=== PATIENT | male | born 1980 | race Caucasian/White ===

== ENCOUNTER 2020-03-28 11:10 | Outpatient (CLI) | payer OTHER, SELFPAY ==
--- NOTE | ~2020-03-28 | CT_ITS ---
EXAMINATION: CT abdomen pelvis w con DATE: 03/28/2020 11:58 INDICATION: Right lower quadrant abdominal pain TECHNIQUE: Computed tomography (CT) of the abdomen and pelvis was performed with 100 cc Omnipaque 350 intravenous contrast. Automated exposure control and iterative reconstruction technique were employe d. Exam dose: 215.96 mGy-cm total exam DLP. COMPARISON: 05/02/2016 CT abdomen pelvis FINDINGS: The lung bases are clear. Normal heart size. No pericardial or pleural effusion. There are bilateral foramen of [place]dale[place] hernias containing portions of the kidneys, larger on the le ft. The liver, gallbladder, bile ducts, pancreas, pancreatic duct, spleen, adrenal glands and kidneys are unremarkable, except for 2 small upper pole left renal calculi, the larger approximately 3 mm.. Normal caliber of the abdominal aorta. No intraperitoneal or retroperitoneal or pelvic mass lesion or adenopathy or ascites. The urinary bladder, prostate gland and seminal vesicles are unremarkable oth er than some prostate calcifications. Normal appendix. No bowel obstruction, bowel wall thickening, pneumatosis or intraperitoneal free air . Included skeletal structures are unremarkable. IMPRESSION: Small nonobstructing upper pole left renal calculi; no urinary tract calculus or hydrour eteronephrosis Normal appendix Bilateral foramen of [place]dalek hernias containing portions of the kidneys Reviewed, dictated and finalized at [facility]. Reviewed, dictated and finalized at [facility]. IMPRESSION: Small nonobstructing upper pole left renal calculi; no urinary tra ct calculus or hydroureteronephrosis Normal appendix Bilateral foramen of [place]dalek hernias containing portions of the kidneys
== END 2020-03-28 11:11 | disposition home or self-care (01) ==
LOC: ANHIMG 11:16
PROVIDERS: PCP Family Medicine; Visit Provider Family Medicine
DX: R10.31 Right lower quadrant pain (principal); N20.0 Calculus of kidney
CPT/HCPCS: 74177; Q9967

== ENCOUNTER 2020-09-03 10:06 | Emergency (ER) | payer OTHER, SELFPAY ==
--- NOTE | ~2020-09-03 | XR_ITS ---
XR abdomen/kub 1V 09/03/2020 11:29 INDICATION: Flank pain TECHNIQUE: KUB COMPARISON: None FINDINGS: Bowel gas pattern is normal. There is no evidence of free air, mass, organomegaly, ascites or obstruction. No abnormal calculi are seen. The bones appear intact. IMPRESSION: 1: No acute abdominal abnormality identified. Reviewed, dictated and finalized at location [facility]. ICULTURE TEACHER
--- NOTE | ~2020-09-03 | CT_ITS ---
EXAMINATION: CT abdomen pelvis wo con DATE: 09/03/2020 11:26 INDICATION: Flank pain TECHNIQUE: Computed tomography (CT) of the abdomen and pelvis was performed without intravenous contr ast. The dose-length product was 169.44 mGy-cm. Automated exposure control and iterative reconstructi on technique were employed. COMPARISON: CT dated 03/28/2020 and KUB dated 09/03/2020 FINDINGS: Lung bases unremarkable. Heart size normal. No significant pleural or pericardial effusion. There is a 3 mm left UVJ stone with mild hydronephrosis. There is a 4 mm nonobstructing left renal st one. No significant vascular abnormality. Small hiatal hernia. No significant vascular abnormality. No lym phadenopathy. No abnormal pelvic masses or fluid collections. Nonobstructive bowel gas pattern. Meera l appendix. There is osteoarthritis of the hips. Dextrocurvature of the lumbar spine. IMPRESSION: 1. Left UVJ stone measuring 3 mm with mild hydronephrosis. 2: Nonobstructing left renal stone. 3: Small hiatal hernia. Reviewed, dictated and finalized at location [facility]. OLATIER
[2020-09-03 10:13] VITALS: BP 142/75; PULSE 86; RESP 18; TEMP 36.1; O2SAT 100
[2020-09-03 10:34] LABS: Basophils Absolute Auto 0.1 K/mm3 (0.0-0.1); Basophils Percent Auto 0.8 % (0.2-1.2); Eosinophils Absolute Auto 0.2 K/mm3 (0-0.3); Eosinophils Percent Auto 2.4 % (0-4.4); Hematocrit 43.7 % (42.0-52.0); Hemoglobin 14.9 g/dL (14.0-18.0); Immature Granulocyte Absolute 0.02 K/mm3 (0.00-0.031); Immature Granulocyte Percent A 0.3 % (0-0.5); Lymphocytes Absolute Auto 2.21 K/mm3 (0.9-3.2); Lymphocytes Percent Auto 27.7 % (18.3-44.2); Mean Corpuscular HGB Conc 34.1 g/dl (32-36); Mean Corpuscular Hemoglobin 30.9 pg (26-34); Mean Corpuscular Volume 90.7 fl (80-100); Mean Platelet Volume 9.3 fl (7.4-10.4); Monocytes Absolute Auto 0.6 K/mm3 (0.1-0.6); Neutrophils Percent Auto 61.8 % (45.5-73.1); Platelet Count Result 307 k/mm3 (150-375); Red Blood Count 4.82 M/mm3 (4.6-6.20); Red Cell Distribution Width 11.5 % (11.5-14.5)
[2020-09-03 10:47] LABS: Anion Gap 9 mmol/L (8-16); Blood Urea Nitrogen 17 mg/dL (9-20); Calcium 9.4 mg/dL (8.4-10.2); Carbon Dioxide 26 mmol/L (22-30); Chloride 105 mmol/L (98-107); Estimated CRCL calculation 89 ml/min; Estimated Glomerular Filt Rate > 60; Glucose 111 mg/dL (75-110); Sodium 140 mmol/L (137-145)
[2020-09-03] MEDS: SODIUM CHLORIDE 0.9% IV 1,000 ML 999 ML IV CONT (10:51)
[2020-09-03] MEDS: FAMOTIDINE 20 MG/2 ML VIAL IV PUSH (10:51)
[2020-09-03] MEDS: ONDANSETRON INJ 4 MG/2 ML VIAL IV PUSH (10:51)
[2020-09-03] MEDS: MORPHINE SULFATE (*CRX) 4 MG/ML INJ IV PUSH (11:05)
[2020-09-03 11:44] LABS: Add Urine Microscopic? YES; Appearance Urine Clear (Clear); Bilirubin Urine Negative (Negative); Blood Urine Negative (Negative); Color Urine Yellow (Yellow); Glucose Urine UA Negative (Negative); Ketones Urine Negative (Negative); Leukocyte Esterase Ur Negative LEU/UL (Negative); Nitrate Urine Negative (Negative); Protein Urine 1+ mg/dL (Negative); RBC Urine 0-2 /hpf (0-2); Specific Grav Ur 1.018 (1.001-1.035); Urobilinogen Urine Negative mg/dL (<2.0)
[2020-09-03] MEDS: KETOROLAC 30 MG/ML VIAL (*BKC) IV PUSH (12:18)
--- NOTE | 2020-09-03 12:54 | ED.BACK ---
HPI - Back Pain/Injury General Chief Complaint: Back Pain/Injury Stated Complaint: back pain Time Seen by Provider: 09/03/20 10:15 Source: patient Mode of arrival: ambulatory Limitations: no limitations History of Present Illness HPI Narrative: Patient is a 39-year-old male who presents to emergency department for evaluation of left flank pain that began acutely today sharp stabbing pain from the left CVA region into the abdomen patient notes history of kidney stone patient does not take anything for his symptoms notes nausea chills and sweats associated with the pain patient had felt fine yesterday Related Data Allergies Allergy/AdvReac Type Severity Reaction Status Date / Time aloe Allergy Unknown Hives Verified 09/03/20 10:17 Latex, Natural Rubber Allergy Hives Verified 09/03/20 10:17 Review of Systems Review of Systems: All systems reviewed & are unremarkable except as noted in HPI and below PMFSH Past Medical History Medical History (Updated 09/03/20 @ 12:59 by Kevan Cunningham PA-C) Urolithiasis Social History Social History Smoking status: Light tobacco smoker Second hand tobacco smoke exposure: No Alcohol intake: current Exam Narrative: Exam Narrative: GENERAL: Well-appearing, well-nourished, and uncomfortable in no acute distress. HEAD: Normocephalic, atraumatic. EYES: PERRLA and EOMI. ENT: Nares clear, no rhinorrhea or epistaxis. Mucous membranes moist. CHEST: Clear to auscultation. No respiratory distress. No wheezes rales or rhonchi HEART: Regular rate and rhythm. No murmur heard. Normal peripheral pulses. ABDOMEN: Soft, nontender, nondistended EXTREMITIES: Normal range of motion. No edema. SKIN: Warm, dry, no rash. NEURO: No focal deficits. Alert and oriented x3. PSYCH: Normal mood and affect. Course Course Emergency Course: Patient found to have urolithiasis will be discharged home no high risk changes in the blood work or imaging otherwise patient had drastic improvement with interventions and medications patient is already seen urology and will follow with them as recommended and was given reasons to return vital signs and ABCs intact and stable Vital Signs Vital signs: Vital Signs Temperature 97.0 F L 09/03/20 10:13 Pulse Rate 86 09/03/20 10:13 Respiratory Rate 18 09/03/20 10:13 Blood Pressure 142/75 H 09/03/20 10:13 Pulse Oximetry 100 09/03/20 10:13 Temperature 97.0 F L 09/03/20 10:13 Pulse Rate 86 09/03/20 10:13 Respiratory Rate 18 09/03/20 10:13 Blood Pressure 142/75 H 09/03/20 10:13 Pulse Oximetry 100 09/03/20 10:13 MDM - Back Pain/Injury MDM Narrative Medical decision making narrative: Patient with urolithiasis as the etiology of his pain will be discharged home after marked improvement with medications. Lab Data Result diagrams: 09/03/20 10:22 09/03/20 10:22 Labs: Lab Results 09/03/20 09/03/20 09/03/20 Range/Units 10:22 10:22 11:36 WBC 8.0 (4.5-10.0) K/mm3 RBC 4.82 (4.6-6.20) M/mm3 Hgb 14.9 (14.0-18.0) g/dL Hct 43.7 (42.0-52.0) % MCV 90.7 (80-100) fl MCH 30.9 (26-34) pg MCHC 34.1 (32-36) g/dl RDW 11.5 (11.5-14.5) % Plt Count 307 (150-375) k/mm3 MPV 9.3 (7.4-10.4) fl Immature Gran % (Auto) 0.3 (0-0.5) % Neut % (Auto) 61.8 (45.5-73.1) % Lymph % (Auto) 27.7 (18.3-44.2) % [place] % (Auto) 7.0 (2.6-8.5) % Eos % (Auto) 2.4 (0-4.4) % Baso % (Auto) 0.8 (0.2-1.2) % Lymph # (Auto) 2.21 (0.9-3.2) K/mm3 [place] # (Auto) 0.6 (0.1-0.6) K/mm3 Eos # (Auto) 0.2 (0-0.3) K/mm3 Baso # (Auto) 0.1 (0.0-0.1) K/mm3 Abs Immat Gran (auto) 0.02 (0.00-0.031) K/mm3 Absolute Neuts (auto) 5.0 (1.3-6.7) K/mm3 Absolute Nucleated RBC 0.0 (0.0-0.012) K/mm3 Nucleated RBC % 0.0 (0.0-0.2) % Sodium 140 (137-145) mmol/L Potassium 4.0 (3.4-5.0) mmol/L Chlorid
[2020-09-03 13:09] VITALS: BP 105/66; PULSE 104; RESP 18; O2SAT 99
== END 2020-09-03 13:11 | disposition home or self-care (01) ==
PROVIDERS: Emergency Medicine Emergency Medical Services; Emergency Provider Emergency Medicine; PCP Family Medicine
DX: N13.2 Hydronephrosis with renal and ureteral calculous obstruction (principal); F17.200 Nicotine dependence, unspecified, uncomplicated; K44.9 Diaphragmatic hernia without obstruction or gangrene
CPT/HCPCS: 36415; 74018; 74176; 80048; 81001; 85025; 87086; 96365; 96366; 96375; 99284; J0131; J1885; J2270; J2405; J7030

== ENCOUNTER 2020-09-07 12:18 | Outpatient (CLI) | payer OTHER, SELFPAY ==
--- NOTE | ~2020-09-07 | XR_ITS ---
EXAMINATION: XR hand LT 2V INDICATION: Pain in unspecified fingers TECHNIQUE: Two views of the left hand are obtained. COMPARISON: None available FINDINGS: There is no fracture, dislocation, or subluxation. The bones, soft tissues, and joint space s are normal. IMPRESSION: 1. No acute osseous abnormality. Reviewed, dictated and finalized at location [facility]. HELPER
== END 2020-09-07 12:19 | disposition home or self-care (01) ==
PROVIDERS: PCP Family Medicine; Visit Provider Physician Assistant
DX: M79.646 Pain in unspecified finger(s) (principal)
CPT/HCPCS: 73120

== ENCOUNTER 2021-03-16 07:40 | Emergency (ER) | payer OTHER, SELFPAY ==
--- NOTE | ~2021-03-16 | US_ITS ---
EXAMINATION: US venous doppler LE RT DATE: 03/16/2021 09:07 INDICATION: Right lower limb pain TECHNIQUE: Grayscale ultrasound images without and with compression and Doppler ultrasound images of the right lower extremity veins were obtained. COMPARISON: None. FINDINGS: The visualized portions of right common femoral vein, profunda (deep) femoral vein, femoral vein, pop liteal vein, peroneal trunk, posterior tibial veins, peroneal veins, gastrocnemius vein and greater s aphenous vein outflow are patent. IMPRESSION: 1. No deep venous thrombosis in the right lower limb. Reviewed, dictated and finalized at location [facility].
--- NOTE | ~2021-03-16 | XR_ITS ---
EXAMINATION: XR knee RT 3V DATE: 03/16/2021 08:30 INDICATION: Right knee pain TECHNIQUE: Three views of the right knee were obtained. COMPARISON: None. FINDINGS: Alignment is normal. No fracture or osteochondral lesion. Joint spaces are normal with no e rosions. No joint effusion/synovitis. Soft tissues are unremarkable. IMPRESSION: 1. No acute osseous abnormality. Reviewed, dictated and finalized at location B.
[2021-03-16 07:41] VITALS: BP 139/89; PULSE 94; RESP 20; TEMP 36.7; O2SAT 100
--- NOTE | 2021-03-16 07:51 | ED.LOWEXIN ---
HPI - Extremity Injury (Lower) General Chief Complaint: Extremity Injury, Lower Stated Complaint: R LEG PAIN Time Seen by Provider: 03/16/21 07:50 History of Present Illness HPI Narrative: right lower leg/knee pain for the past few days. Dull aching pain. Gets better after moving around. No weakness, numbness, swelling, back pain, SOB. He has not ried anything for the pain. Related Data Allergies Allergy/AdvReac Type Severity Reaction Status Date / Time aloe Allergy Unknown Hives Verified 09/03/20 10:17 Latex, Natural Rubber Allergy Hives Verified 09/07/20 11:33 Review of Systems Review of Systems: All systems reviewed & are unremarkable except as noted in HPI and below Constitutional: Constitutional: Denies chills and Denies fever(s) Cardiovascular: Cardiovascular: Denies chest pain Respiratory: Respiratory: Denies dyspnea Gastrointestinal: Gastrointestinal: Reports no additional gastrointestinal complaints Musculoskeletal: Musculoskeletal: Denies back pain Neurologic: Denies numbness and Denies weakness PMFSH Past Medical History Medical History Hernia Urolithiasis Social History Social History Smoking packs per day: 0.5 Smoking cigarettes per day: 10.0 Years smoked: 20 Smoking pack-years: 10.00 Smoking status: Current every day smoker Second hand tobacco smoke exposure: No Alcohol intake: former Substance use: current Substance use type: marijuana Gender identity (if verbalized by the patient): Male Exam Const: General: healthy appearing, no acute distress and alert Orientation/consciousness: patient oriented x3 HENMT: Head: normal to inspection Neck: Neck: normal visual inspection Resp: Effort & Inspection: normal respiratory effort Auscultation: clear to auscultation bilaterally, no rales, no rhonchi and no wheezes Cardio: Jugular venous distension: no JVD Rate: regular rate Rhythm: regular rhythm Heart sounds: no murmurs Skin: General skin exam: normal color Neuro: General: patient oriented x3, moves all extremities and no focal motor deficits Speech: normal speech Gait exam (Neuro): Normal gait present Extrem: General: normal to inspection and no edema Psych: Appearance: well kempt Affect: normal affect Course Vital Signs Vital signs: Vital Signs Temperature 36.7 C 03/16/21 07:41 Pulse Rate 94 03/16/21 07:41 Respiratory Rate 20 03/16/21 07:41 Blood Pressure 139/89 03/16/21 07:41 Pulse Oximetry 100 03/16/21 07:41 Temperature 36.7 C 03/16/21 08:51 Pulse Rate 59 L 03/16/21 10:41 Respiratory Rate 16 03/16/21 10:41 Blood Pressure 114/73 03/16/21 10:41 Pulse Oximetry 97 03/16/21 10:41 MDM - Extremity Injury (Lower) MDM Narrative Medical decision making narrative: I suspect that this is sciatica, although an atypicla presentation. Doppler negative. X-ray normal. Medical Records Attestation: I reviewed the patient's medical records. Imaging Data Radiologist's impression: ITS Impressions Knee X-Ray 03/16/21 08:40 IMPRESSION: 1. No acute osseous abnormality. Venous Doppler Study 03/16/21 09:08 IMPRESSION: 1. No deep venous thrombosis in the right lower limb. Discharge Plan Discharge Clinical Impression: Sciatica Qualifiers: Laterality: right Qualified Code(s): M54.31 - Sciatica, right side Patient Disposition: Home, Self-Care Condition: Stable Instructions: Sciatica (ED) Prescriptions: New methylprednisolone [Medrol (Kd)] 4 mg tablets,dose pack See Rx Instructions .ROUTE .COMPLEX Qty: 21 RF: 0 Follow-up/Referrals: Génesis Beltran MD [Primary Care Provider] -
[2021-03-16] MEDS: KETOROLAC (*BKC) 60 MG/2 ML VIAL IM (08:21)
--- NOTE | 2021-03-16 08:21 | PC.NURSE ---
Pt to U/S and XRAY via w/c.
[2021-03-16 08:51] VITALS: TEMP 36.7
[2021-03-16] MEDS: predniSONE 20 MG TABLET 60 MG PO (10:38)
[2021-03-16 10:41] VITALS: BP 114/73; PULSE 59; RESP 16; O2SAT 97
== END 2021-03-16 10:56 | disposition home or self-care (01) ==
PROVIDERS: Emergency Provider Emergency Medicine; PCP Family Medicine
DX: M54.31 Sciatica, right side (principal); Z87.442 Personal history of urinary calculi; F17.210 Nicotine dependence, cigarettes, uncomplicated
CPT/HCPCS: 73562; 93971; 96372; 99284; J1885; J7512

== ENCOUNTER 2024-05-03 13:59 | Outpatient (CLI) | payer OTHER, SELFPAY ==
--- NOTE | ~2024-05-03 | XR_ITS ---
[id number] Ordering provider: Joy Sprague PA-C History: . R52 - Pain, unspecified . Comparison: None. FINDINGS: VERTEBRAL BODIES: Normal height and alignment. No visible fracture or subluxation. The dens is intact . DISK SPACES: Narrowing of the disc C3-C4, C5-C6 and C6-C7. Uncovertebral joint osteoarthritic changes at the level of C5-C6 and C6-C7. PARASPINOUS SOFT TISSUES: No prevertebral soft tissue swelling. IMPRESSION: No acute osseous abnormality cervical spine. Reviewed, dictated and finalized at location A.
== END 2024-05-03 14:00 | disposition home or self-care (01) ==
PROVIDERS: PCP Family Medicine; Visit Provider Student in an Organized Health Care Education/Training Program
DX: R52 Pain, unspecified (principal)
CPT/HCPCS: 72040

== ENCOUNTER 2024-06-11 07:12 | Outpatient (CLI) | payer OTHER, SELFPAY ==
[2024-06-11 07:22] LABS: Basophils Percent Auto 0.6 % (0.2-1.2); Eosinophils Absolute Auto 0.2 K/mm3 (0-0.3); Eosinophils Percent Auto 2.6 % (0-4.4); Hematocrit 43.7 % (42.0-52.0); Hemoglobin 14.9 g/dL (14.0-18.0); Immature Granulocyte Absolute 0.04 K/mm3 (0.00-0.031); Immature Granulocyte Percent A 0.6 % (0-0.5); Lymphocytes Absolute Auto 1.66 K/mm3 (0.9-3.2); Lymphocytes Percent Auto 25.7 % (18.3-44.2); Mean Corpuscular HGB Conc 34.1 g/dl (32-36); Mean Corpuscular Hemoglobin 31.2 pg (26-34); Mean Corpuscular Volume 91.6 fl (80-100); Mean Platelet Volume 9.1 fl (7.4-10.4); Monocytes Absolute Auto 0.7 K/mm3 (0.1-0.6); Monocytes Percent Auto 10.4 % (2.6-8.5); Neutrophils Absolute Auto 3.9 K/mm3 (1.3-6.7); Neutrophils Percent Auto 60.1 % (45.5-73.1); Platelet Count Result 285 k/mm3 (150-375); Red Blood Count 4.77 M/mm3 (4.6-6.20); Red Cell Distribution Width 11.6 % (11.5-14.5); White Blood Count 6.5 K/mm3 (4.5-10.0)
[2024-06-11 07:40] LABS: Alanine Aminotransferase 82 U/L (6-50); Albumin Level 4.5 g/dL (3.5-5.1); Alkaline Phosphatase 107 U/L (38-126); Anion Gap 5 mmol/L (4-12); Aspartate Amino Transferase 51 U/L (17-59); Bilirubin,Total 0.5 mg/dL (0.2-1.3); Blood Urea Nitrogen 18 mg/dL (9-20); Calcium 9.7 mg/dL (8.4-10.2); Carbon Dioxide 30 mmol/L (22-30); Chloride 104 mmol/L (98-107); Cholesterol 246 mg/dL (0-200); Estimated Glomerular Filt Rate > 60; Glucose 110 mg/dL (65-110); HDL Direct 44 mg/dL; Potassium 4.5 mmol/L (3.4-5.0); Sodium 139 mmol/L (137-145); Triglycerides 226 mg/dL (<150)
[2024-06-11 07:51] LABS: LDL Cholesterol Direct 129 mg/dL
== END 2024-06-11 07:13 | disposition home or self-care (01) ==
PROVIDERS: PCP Family Medicine; Visit Provider Student in an Organized Health Care Education/Training Program
DX: Z00.00 Encounter for general adult medical examination without abnormal findings (principal); R53.83 Other fatigue
CPT/HCPCS: 36415; 80053; 80061; 85025

== ENCOUNTER 2024-11-22 07:49 | Observation (INO) | payer OTHER, SELFPAY ==
[2024-11-22] VITALS (13 sets, daily range): BP systolic 122–148; BP diastolic 81–97; PULSE 78–95; RESP 16–18; TEMP 36.6–36.9; O2SAT 96–100
--- NOTE | ~2024-11-22 | XR_ITS ---
EXAMINATION: XR retrograde pyelo w/stent LT DATE: 11/23/2024 12:05 INDICATION: Left retrograde pyelogram and internal ureteral stent placement TECHNIQUE: 4 fluoroscopic images of the abdomen and pelvis were obtained during procedure performed b stephanie Rios. Radiologist was not present for the imaging or procedure. The amount of fluoroscopy t donny used during this procedure was 0.4 minutes. Total DAP was 0.319 mGym^2. COMPARISON: None. FINDINGS: There is subtle excreted contrast in the left ureter on the traffic rate clerk image. Small density projecting ove r the left side of the bladder could represent the previously noted obstructing stone near the ureter ovesicular junction. Subsequent images demonstrate cannulation and retrograde contrast injection into the left ureter and renal collecting system which appear unremarkable. No other stones identified. T he left kidney although small stone seen at the upper pole the left kidney on prior CT could be obscu red by the injected contrast. A subtle curvilinear density projecting over the contrast opacified lef t renal pelvis on the final image could represent the proximal loop of a reported left internal urete ral stent. IMPRESSION: 1. Fluoroscopy utilized during left retrograde pyelogram and report intraureteral stent placement. Se e procedure note for further detail. Reviewed, dictated and finalized at location A. IMPRESSION: 1. Fluoroscopy utilized during left retrograde pyelogram and report intraureter al stent placement. See procedure note for further detail.
--- NOTE | ~2024-11-22 | CT_ITS ---
EXAMINATION: CT abdomen pelvis w con DATE: 11/22/2024 10:05 INDICATION: Abdominal pain and flank pain TECHNIQUE: Computed tomography (CT) of the abdomen and pelvis was performed with 100 mL Omnipaque-350 intravenous contrast. Automated exposure control and iterative reconstruction technique were employe d. The dose-length product was 434.68 mGy-cm. COMPARISON: 09/03/2020 FINDINGS: Mild dependent atelectasis in the bilateral lower lobes. Heart size is normal. No pericardial or pleu ral effusion. Small sliding-type hiatal hernia. Liver, gallbladder, spleen, pancreas,, bilateral adre nal glands and right kidney are normal. 4-5 mm obstructing stone at the left ureterovesicular junctio n with mild left hydronephrosis and delayed left nephrogram. There is an additional 4 mm stone in upp er pole calyx of the left kidney. Bowels including the appendix are normal. Bladder is normal. No doc e intraperitoneal gas or fluid. No pathologically enlarged abdominal or pelvic lymphadenopathy. Mild lumbar and lower thoracic spondylosis. IMPRESSION: 1. Obstructing 4-5 mm stone at the left ureterovesicular junction with mild left hydronephrosis and d elayed nephrogram. Reviewed, dictated and finalized at location B. IMPRESSION: 1. Obstructing 4-5 mm stone at the left ureterovesicular junction with mild lef t hydronephrosis and delayed nephrogram.
[2024-11-22 08:52] LABS: Basophils Absolute Auto 0.1 K/mm3 (0.0-0.1); Basophils Percent Auto 0.5 % (0.2-1.2); Eosinophils Percent Auto 0.3 % (0-4.4); Hematocrit 41.4 % (42.0-52.0); Hemoglobin 14.2 g/dL (14.0-18.0); Immature Granulocyte Absolute 0.05 K/mm3 (0.00-0.031); Immature Granulocyte Percent A 0.4 % (0-0.5); Lymphocytes Absolute Auto 1.45 K/mm3 (0.9-3.2); Mean Corpuscular HGB Conc 34.3 g/dl (32-36); Mean Corpuscular Hemoglobin 30.2 pg (26-34); Mean Corpuscular Volume 88.1 fl (80-100); Mean Platelet Volume 9.6 fl (7.4-10.4); Monocytes Absolute Auto 1.2 K/mm3 (0.1-0.6); Monocytes Percent Auto 10.2 % (2.6-8.5); Neutrophils Absolute Auto 9.2 K/mm3 (1.3-6.7); Neutrophils Percent Auto 76.6 % (45.5-73.1); Platelet Count Result 274 k/mm3 (150-375); Red Cell Distribution Width 11.9 % (11.5-14.5); White Blood Count 12.1 K/mm3 (4.5-10.0)
[2024-11-22 08:56] LABS: Add Urine Microscopic? YES; Appearance Urine Clear (Clear); Bacteria Urine None Seen /hpf; Bilirubin Urine Negative (Negative); Blood Urine Negative (Negative); Color Urine Yellow (Yellow); Glucose Urine UA Negative (Negative); Ketones Urine Negative (Negative); Leukocyte Esterase Ur Negative LEU/UL (Negative); Nitrate Urine Negative (Negative); Non Pathogenic Casts 0-2; Protein Urine 1+ mg/dL (Negative); RBC Urine 0-2 /hpf (0-2); Specific Grav Ur 1.022 (1.001-1.035); Squamous Epithelial Cell Urine None Seen /hpf (Few); WBC Urine 0-5 /hpf (0-3)
[2024-11-22 09:06] LABS: Alanine Aminotransferase 48 U/L (6-50); Albumin Level 4.5 g/dL (3.5-5.1); Alkaline Phosphatase 124 U/L (38-126); Anion Gap 10 mmol/L (4-12); Aspartate Amino Transferase 28 U/L (17-59); Bilirubin,Total 0.7 mg/dL (0.2-1.3); Blood Urea Nitrogen 18 mg/dL (9-20); Calcium 9.2 mg/dL (8.4-10.2); Carbon Dioxide 26 mmol/L (22-30); Chloride 101 mmol/L (98-107); Estimated CRCL calculation 55 ml/min; Estimated Glomerular Filt Rate 44; Glucose 112 mg/dL (65-110); Lipase 27 U/L (23-300); Potassium 4.1 mmol/L (3.4-5.0); Sodium 137 mmol/L (137-145)
--- NOTE | 2024-11-22 09:44 | ED_ITS ---
HPI - Abdominal Pain General Chief Complaint: Abdominal Pain <Ada Loyola APRN - Last Filed: 11/22/24 13:34> Stated Complaint: left flank pain <Ada Loyola APRN - Last Filed: 11/22/24 13:34> Time Seen by Provider: 11/22/24 09:03 <Ada Loyola APRN - Last Filed: 11/22/24 13:34> History of Present Illness HPI narrative: Patient is a 44-year-old male who presents to the ER with complaints of left flank pain. He reports the pain started approximately 4 days ago. Patient reports his last bowel movement was approximately 5 days ago. He endorses nausea and decreased p.o. intake over the past 4 days. Patient reports he a fever yesterday with T max of 102.3. Patient reports he took DayQuil to treat the fever. He denies any alcohol or drug use. Patient reports the pain starts in his left flank and shoots down into his abdomen around his waist band. He endorses a history of the stones once before denies any other relevant medical history. <Ada Loyola APRN - Last Filed: 11/22/24 13:34> Related Data Home Medications: Home Medications ?Medication ?Instructions ?Recorded ?Confirmed ?Last Taken ?Type No Home Medications 11/22/24 11/22/24 Unknown History <Ada Loyola APRN - Last Filed: 11/22/24 13:34> Allergies/Adverse Reactions: Allergies Allergy/AdvReac Type Severity Reaction Status Date / Time aloe Allergy Unknown Hives Verified 11/22/24 10:08 Latex, Natural Rubber Allergy Hives Verified 11/22/24 10:08 <Ada Loyola APRN - Last Filed: 11/22/24 13:34> Review of Systems 2 Review of Systems: All systems reviewed & are unremarkable except as noted in HPI and below <Ada Loyola APRN - Last Filed: 11/22/24 13:34> PMFSH Past Medical History Medical History: Medical History Pain in wrist Tobacco use Hernia Urolithiasis <Ada Loyola APRN - Last Filed: 11/22/24 13:34> Social History Social History: Social History Smoking packs per day: 0.5 Smoking cigarettes per day: 10.0 Years smoked: 20 Smoking pack-years: 10.00 Smoking status: Never smoker Second hand tobacco smoke exposure: No Alcohol intake: never Substance use: never Substance use type: marijuana Other substance usage details: daily use Last use: [id number] Do You Feel Safe in your Home?: Yes Lack of Transportation: No Lack of Food: Never True Current Housing: I Have Housing Concerned About Future Housing: No Difficulty Paying Gas/Electric Bills: No Difficulty Paying for Meds: No Currently Unemployed: No Education: High School Diploma/GED Difficulty w/ Childcare or Family Care: No Living arrangements: with family Occupation/Education: occupation Gender identity (if verbalized by the patient): Male Spiritual care concerns: No <Ada Loyola APRN - Last Filed: 11/22/24 13:34> Exam 2 Narrative: GENERAL: Well appearing, well-nourished, non-toxic, in no acute distress. HEAD: Normocephalic, atraumatic. NECK: Supple. No adenopathy, no masses. RESPIRATORY: Airway patent, respirations nonlabored. Clear to auscultation bilaterally, no rales, rhonchi, wheezing. CARDIOVASCULAR: Regular rate and rhythm without murmurs, rubs, or gallops. Peripheral pulses 2+ and equal bilaterally. +CVA tenderness ABDOMINAL: Soft, nontender, nondistended, no hepatosplenomegaly. Normoactive BS. MUSCULOSKELETAL: Moves all extremities. Strength/ROM intact without gross deformities. SKIN: Warm, dry, normal color. No rashes. NEURO: A&O X3. Speech clear. Cranial nerves II-XII intact. No ataxic movements. PSYCHIATRIC: Appropriate mood and affect. Normal interaction. <Ada Loyola APRN - Last Filed: 11/22/24 13:34> Course Course Emergency Course: ART GLASS DESIGNER informed me this patient would be admitted for KRISTEN with stone. Has already spoken with urology. Denies any concerns for infection on urinalysis and, upon my review of UA, concur. I was available for consultation but did not personally evaluate this patient and was not directly involved in their care. . <Lily Rapp MD - Last Filed: 11/22/24 23:32> Vital Signs Vital signs: Vital Signs Temperature 98.1 F 11/22/24 07:50 Pulse Rate 95 11/22/24 07:50 Respiratory Rate 16 11/22/24 07:50 Blood Pressure 143/89 H 11/22/24 07:50 Pulse Oximetry 99 11/22/24 07:50 Oxygen Delivery Room Air 11/22/24 07:50 Temperature 98.4 F 11/22/24 22:00 Pulse Rate 88 11/22/24 22:00 Respiratory Rate 16 11/22/24 22:00 Blood Pressure 134/84 11/22/24 22:00 Pulse Oximetry 98 11/22/24 22:00 Oxygen Delivery Room Air 11/22/24 20:00 <Ada Loyola APRN - Last Filed: 11/22/24 13:34> Vital Signs Temperature 98.1 F 11/22/24 07:50 Pulse Rate 95 11/22/24 07:50 Respiratory Rate 16 11/22/24 07:50 Blood Pressure 143/89 H 11/22/24 07:50 Pulse Oximetry 99 11/22/24 07:50 Oxygen Delivery Room Air 11/22/24 07:50 Temperature 98.4 F 11/22/24 22:00 Pulse Rate 88 11/22/24 22:00 Respiratory Rate 16 11/22/24 22:00 Blood Pressure 134/84 11/22/24 22:00 Pulse Oximetry 98 11/22/24 22:00 Oxygen Delivery Room Air 11/22/24 20:00 <Lily Rapp MD - Last Filed: 11/22/24 23:32> MDM - Abdominal Pain MDM Narrative Medical decision making narrative: Patient is a 44-year-old male who presents to the ER with complaints of left flank pain. He reports the pain started approximately 4 days ago. Patient reports his last bowel movement was approximately 5 days ago. He endorses nausea and decreased p.o. intake over the past 4 days. Patient reports he a fever yesterday with T max of 102.3. Patient reports he took DayQuil to treat the fever. He denies any alcohol or drug use. Patient reports the pain starts in his left flank and shoots down into his abdomen around his waist band. He endorses a history of the stones once before denies any other relevant medical history. Labs Ordered: CBC, CMP, UA Imaging Ordered: CT abdomen pelvis Medications Ordered: Zofran IV, 1 L normal saline IV, Toradol IV, Dilaudid IV Results: Patient's CT scan indicates Obstructing 4-5 mm stone at the left ureterovesicular junction with mild left hydronephrosis and delayed nephrogram. Diagnosis: Obstructing kidney stone Consults: Urology (Dr. Ventura), Urology advised patient should be admitted to the hospital and he will have a stent placed tomorrow. Patient Education/Shared MDM: Results shared with patient. He endorses improvement following medication administration. Spoke with hospitalist who would prefer pt be admitted under Audrey's service. Dr. Ventura agreed to admit pt under his service. Will start pt on Flomax and strain his urine. <Ada Loyola APRN - Last Filed: 11/22/24 13:34> Differential Diagnosis Differential diagnosis: Likely abdominal pain, calculus of kidney, constipation, gastroenteritis and small bowel obstruction <Ada Loyola APRN - Last Filed: 11/22/24 13:34> Lab Data Attestation: I reviewed the patient's lab results. <Ada Loyola APRN - Last Filed: 11/22/24 13:34> Result diagrams: 11/22/24 08:44 11/22/24 08:44 <Ada Loyola APRN - Last Filed: 11/22/24 13:34> Labs: Lab Results 11/22/24 Range/Units 08:44 WBC 12.1 H (4.5-10.0) K/mm3 RBC 4.70 (4.6-6.20) M/mm3 Hgb 14.2 (14.0-18.0) g/dL Hct 41.4 L (42.0-52.0) % MCV 88.1 (80-100) fl MCH 30.2 (26-34) pg MCHC 34.3 (32-36) g/dl RDW 11.9 (11.5-14.5) % Plt Count 274 (150-375) k/mm3 MPV 9.6 (7.4-10.4) fl Immature Gran % (Auto) 0.4 (0-0.5) % Neut % (Auto) 76.6 H (45.5-73.1) % Lymph % (Auto) 12.0 L (18.3-44.2) % [place] % (Auto) 10.2 H (2.6-8.5) % Eos % (Auto) 0.3 (0-4.4) % Baso % (Auto) 0.5 (0.2-1.2) % Lymph # (Auto) 1.45 (0.9-3.2) K/mm3 [place] # (Auto) 1.2 H (0.1-0.6) K/mm3 Eos # (Auto) 0.0 (0-0.3) K/mm3 Baso # (Auto) 0.1 (0.0-0.1) K/mm3 Abs Immat Gran (auto) 0.05 H (0.00-0.031) K/mm3 Absolute Neuts (auto) 9.2 H (1.3-6.7) K/mm3 Absolute Nucleated RBC 0.000 (0.0-0.012) K/mm3 Nucleated RBC % 0.0 (0.0-0.2) % Sodium 137 (137-145) mmol/L Potassium 4.1 (3.4-5.0) mmol/L Chloride 101 (98-107) mmol/L Carbon Dioxide 26 (22-30) mmol/L Anion Gap 10 (4-12) mmol/L BUN 18 (9-20) mg/dL Creatinine 1.70 H (0.7-1.3) mg/dL Estim Creat Clear Calc 55 ml/min Estimated GFR 44 L (59 - ) Glucose 112 H (65-110) mg/dL Calcium 9.2 (8.4-10.2) mg/dL Total Bilirubin 0.7 (0.2-1.3) mg/dL AST 28 (17-59) U/L ALT 48 (6-50) U/L Alkaline Phosphatase 124 (38-126) U/L Total Protein 8.0 (6.3-8.2) g/dL Albumin 4.5 (3.5-5.1) g/dL Lipase 27 (23-300) U/L Urine Color Yellow (Yellow) Urine Appearance Clear (Clear) Urine pH 6.0 (5.0-9.0) Ur Specific [place] 1.022 (1.001-1.035) Urine Protein 1+ H (Negative) mg/dL Urine Glucose (UA) Negative (Negative) mg/dL Urine Ketones Negative (Negative) mg/dL Ur Blood (Man) Negative (Negative) Urine Nitrate Negative (Negative) Urine Bilirubin Negative (Negative) Urine Urobilinogen 1.0 (<2.0) mg/dL Leukocyte Esterase Rfl Negative (Negative) WYATT/UL Urine RBC 0-2 (0-2) /hpf Urine WBC 0-5 (0-3) /hpf Ur Squamous Epith Cells None seen (Few) /hpf Urine Bacteria None seen /hpf Urine Casts 0-2 <Ada Loyola, GLUE SPRAYER - Last Filed: 11/22/24 13:34> Lab Results 11/22/24 Range/Units 08:44 WBC 12.1 H (4.5-10.0) K/mm3 RBC 4.70 (4.6-6.20) M/mm3 Hgb 14.2 (14.0-18.0) g/dL Hct 41.4 L (42.0-52.0) % MCV 88.1 (80-100) fl MCH 30.2 (26-34) pg MCHC 34.3 (32-36) g/dl RDW 11.9 (11.5-14.5) % Plt Count 274 (150-375) k/mm3 MPV 9.6 (7.4-10.4) fl Immature Gran % (Auto) 0.4 (0-0.5) % Neut % (Auto) 76.6 H (45.5-73.1) % Lymph % (Auto) 12.0 L (18.3-44.2) % [place] % (Auto) 10.2 H (2.6-8.5) % Eos % (Auto) 0.3 (0-4.4) % Baso % (Auto) 0.5 (0.2-1.2) % Lymph # (Auto) 1.45 (0.9-3.2) K/mm3 [place] # (Auto) 1.2 H (0.1-0.6) K/mm3 Eos # (Auto) 0.0 (0-0.3) K/mm3 Baso # (Auto) 0.1 (0.0-0.1) K/mm3 Abs Immat Gran (auto) 0.05 H (0.00-0.031) K/mm3 Absolute Neuts (auto) 9.2 H (1.3-6.7) K/mm3 Absolute Nucleated RBC 0.000 (0.0-0.012) K/mm3 Nucleated RBC % 0.0 (0.0-0.2) % Sodium 137 (137-145) mmol/L Potassium 4.1 (3.4-5.0) mmol/L Chloride 101 (98-107) mmol/L Carbon Dioxide 26 (22-30) mmol/L Anion Gap 10 (4-12) mmol/L BUN 18 (9-20) mg/dL Creatinine 1.70 H (0.7-1.3) mg/dL Estim Creat Clear Calc 55 ml/min Estimated GFR 44 L (59 - ) Glucose 112 H (65-110) mg/dL Calcium 9.2 (8.4-10.2) mg/dL Total Bilirubin 0.7 (0.2-1.3) mg/dL AST 28 (17-59) U/L ALT 48 (6-50) U/L Alkaline Phosphatase 124 (38-126) U/L Total Protein 8.0 (6.3-8.2) g/dL Albumin 4.5 (3.5-5.1) g/dL Lipase 27 (23-300) U/L Urine Color Yellow (Yellow) Urine Appearance Clear (Clear) Urine pH 6.0 (5.0-9.0) Ur Specific [place] 1.022 (1.001-1.035) Urine Protein 1+ H (Negative) mg/dL Urine Glucose (UA) Negative (Negative) mg/dL Urine Ketones Negative (Negative) mg/dL Ur Blood (Man) Negative (Negative) Urine Nitrate Negative (Negative) Urine Bilirubin Negative (Negative) Urine Urobilinogen 1.0 (<2.0) mg/dL Leukocyte Esterase Rfl Negative (Negative) WYATT/UL Urine RBC 0-2 (0-2) /hpf Urine WBC 0-5 (0-3) /hpf Ur Squamous Epith Cells None seen (Few) /hpf Urine Bacteria None seen /hpf Urine Casts 0-2 <Lily Rapp MD - Last Filed: 11/22/24 23:32> Imaging Data Attestation: I personally reviewed and interpreted this imaging study as follows: < Ada Loyola APRN - Last Filed: 11/22/24 13:34> Radiologist's impression: ITS Impressions Abdomen/Pelvis CT 11/22/24 10:17 IMPRESSION: 1. Obstructing 4-5 mm stone at the left ureterovesicular junction with mild left hydronephrosis and delayed nephrogram. <Ada Loyola APRN - Last Filed: 11/22/24 13:34> ITS Impressions Abdomen/Pelvis CT 11/22/24 10:17 IMPRESSION: 1. Obstructing 4-5 mm stone at the left ureterovesicular junction with mild left hydronephrosis and delayed nephrogram. <Lily Rapp MD - Last Filed: 11/22/24 23:32> Discharge Plan Discharge Clinical Impression: Ureteral stone, Acute kidney injury, Hydronephrosis <Ada Loyola APRN - Last Filed: 11/22/24 13:34> Patient Disposition: Still a Patient <Ada Loyola APRN - Last Filed: 11/22/24 13:34> Condition: Stable <Ada Loyola APRN - Last Filed: 11/22/24 13:34>
[2024-11-22] MEDS: SODIUM CHLORIDE 0.9% IV 1,000 ML 999 ML IV CONT (10:08)
[2024-11-22] MEDS: ONDANSETRON INJ 4 MG/2 ML VIAL IV PUSH (10:09)
[2024-11-22] MEDS: KETOROLAC 30 MG/ML VIAL (*BKC) IV PUSH (10:10)
[2024-11-22] MEDS: HYDROmorphone HCL INJ (*CRX) 1 MG/ML SYR 0.5 MG IV PUSH ×3 (10:12→23:07)
--- NOTE | 2024-11-22 12:43 | P.CONUR_ITS ---
Assessment and Plan Assessment and plan (1) Ureteral stone: Code(s): N20.1 - Calculus of ureter Status: Acute Assessment and Plan: He will be admitted to the hospital. Pain control, Strain urine, Flomax. We discussed a ureteroscopy tomorrow should the stone not pass overnight. He understands risks of bleeding, infection, damage to the urinary tract, inability remove the stone. He agrees to proceed. (2) Hydronephrosis: Code(s): N13.30 - Unspecified hydronephrosis Status: Acute Assessment and Plan: Due to ureteral stone (3) Acute kidney injury: Code(s): N17.9 - Acute kidney failure, unspecified Status: Acute Assessment and Plan: Likely a combination of ureteral stone as well as dehydration Urology Consult Note HPI Date Seen: 11/22/24 Primary Care Provider: Génesis Beltran MD Consult Narrative Narrative: Joseph Gates is a 44 year old male he has a prior history of kidney stones. His prior stone passed spontaneously. He has had 4 day history of left flank pain and decreased p.o. intake. He notes he has felt a little dehydrated. He was into the emergency room and was diagnosed with a left distal ureteral stone measuring 4-5 mm. He has acute kidney injury and a slightly elevated creatinine. There is no fevers or chills. Normal white count. Urine is not suspicious for infection. There is no OR time available today until late tonight. We will plan on elective stone extraction tomorrow should the stone not pass spontaneously Review of Systems 2 Review of Systems: All systems reviewed & are unremarkable except as noted in HPI and below PMFSH Past Medical History Medical History Pain in wrist Tobacco use Hernia Urolithiasis Social History Social History Smoking packs per day: 0.5 Smoking cigarettes per day: 10.0 Years smoked: 20 Smoking pack-years: 10.00 Smoking status: Former smoker (Quit ) Second hand tobacco smoke exposure: No Alcohol intake: former Substance use: current Substance use type: marijuana Other substance usage details: daily use Last use: [id number] Living arrangements: with family Occupation/Education: occupation Gender identity (if verbalized by the patient): Male Meds Home Medications and Allergies Home Medications ?Medication ?Instructions ?Recorded ?Confirmed ?Type celecoxib 100 mg capsule (Celebrex) 100 mg PO DAILY #30 caps 06/08/24 06/08/24 Rx Allergies Allergy/AdvReac Type Severity Reaction Status Date / Time aloe Allergy Unknown Hives Verified 11/22/24 10:08 Latex, Natural Rubber Allergy Hives Verified 11/22/24 10:08 Vital Signs Vital Signs - 24 hr 11/22/24 07:50 11/22/24 08:38 11/22/24 10:12 Temperature 98.1 F Pulse Rate 95 78 80 Respiratory Rate 16 16 18 Blood Pressure 143/89 H 126/97 H 138/88 Pulse Oximetry 99 97 100 Oxygen Delivery Room Air Exam 2 Const: General: cooperative, healthy appearing and comfortable; No in distress or anxious Nutritional Appearance: average body habitus and well nourished Limitations: no limitations HENMT: Head: normal to inspection Eyes: General: appearance normal, both eyes and all related structures Neck: Neck: normal visual inspection and full ROM Resp: Effort & Inspection: normal respiratory effort, able to speak in complete sentences and no cough GI: Inspection: normal to inspection Skin: General skin exam: normal color, no rashes or lesions noted and elasticity normal Lesions: no lesions Neuro: General: patient oriented x3 and moves all extremities Extrem: General: normal to inspection and full ROM Psych: Appearance: grossly normal Results Labs 11/22/24 08:44 11/22/24 08:44 Labs: Short CBC 11/22/24 Range/Units 08:44 WBC 12.1 H (4.5-10.0) K/mm3 Hgb 14.2 (14.0-18.0) g/dL Hct 41.4 L (42.0-52.0) % Plt Count 274 (150-375) k/mm3 BMP 11/22/24 08:44 Sodium 137 Potassium 4.1 Chloride 101 Carbon Dioxide 26 BUN 18 Creatinine 1.70 H Glucose 112 H Calcium 9.2 Liver Function 11/22/24 Range/Units 08:44 Total Bilirubin 0.7 (0.2-1.3) mg/dL AST 28 (17-59) U/L ALT 48 (6-50) U/L Alkaline Phosphatase 124 (38-126) U/L Albumin 4.5 (3.5-5.1) g/dL Urine 11/22/24 Range/Units 08:44 Urine Color Yellow (Yellow) Urine Appearance Clear (Clear) Urine pH 6.0 (5.0-9.0) Ur Specific [place] 1.022 (1.001-1.035) Urine Protein 1+ H (Negative) mg/dL Urine Glucose (UA) Negative (Negative) mg/dL Imaging My impression: I reviewed his CT scan he has a left distal ureteral stone with a degree of hydronephrosis and delayed nephrogram
[2024-11-22] MEDS: TAMSULOSIN HCL 0.4 MG CAPSULE PO (13:59)
[2024-11-22] MEDS: SODIUM CHLORIDE 0.9% IV 1,000 ML 125 ML IV CONT (17:15)
[2024-11-23] VITALS (11 sets, daily range): BP systolic 114–154; BP diastolic 69–92; PULSE 73–86; RESP 14–18; TEMP 36–37.1; O2SAT 95–100
[2024-11-23] MEDS: SODIUM CHLORIDE 0.9% IV 1,000 ML 125 ML IV CONT ×2 (02:18→18:39)
[2024-11-23] MEDS: HYDROmorphone HCL INJ (*CRX) 1 MG/ML SYR 0.5 MG IV PUSH (02:40)
--- NOTE | 2024-11-23 09:52 | WPDHPUPDATE1 ---
History and Physical Update Update Date/Time: 11/23/24 09:52 History and Physical has been reviewed, including an updated exam of the patient. There are NO changes in the patient's condition. Risks, benefits, and alternatives have been discussed and questions answered. Patient agrees to proceed with procedure. Proceed with cystoscopy, left retrograde pyelogram, left ureteroscopy stone extraction, possible laser, stent placement
[2024-11-23] MEDS: LACTATED RINGERS 1,000 ML 30 ML IV CONT (10:10)
--- NOTE | 2024-11-23 10:48 | P.PNAN_ITS ---
Anes - Initial Pre Proc Eval Procedure: Operation Date: 11/23/24 11:30 Proposed Procedures p Cystoscopy, Left Ureteroscopy, Possible Left Retrograde Pyelogram, Possible Left Stone Extraction, Possible Left Stent Placement, Possible Holmium Laser Procedure - Juanjose Rios MD Date/Time: 11/23/24 10:48 Surgeon: Nathanael Ventura MD Pre Op Diagnosis: left flank pain Patient Data Age: 44 Gender: M Height: 1.8 m Weight: 84 kg Last Vital Signs Temp 98.6 F 11/23/24 10:10 Pulse 86 11/23/24 10:10 Resp 18 11/23/24 10:10 BP 154/86 H 11/23/24 10:10 Pulse Ox 96 11/23/24 10:10 O2 Del Method Room Air 11/23/24 10:10 Allergies Allergy/AdvReac Type Severity Reaction Status Date / Time aloe Allergy Unknown Hives Verified 11/23/24 10:07 Latex, Natural Rubber Allergy Hives Verified 11/23/24 10:07 Home Medications ?Medication ?Instructions ?Recorded ?Confirmed ?Type No Home Medications 11/22/24 11/22/24 History Patient hx anesthesia problems: none Family hx anesthesia problems: none Results Review: All pre-operative results and documents have been reviewed as part of the pre- operative evaluation. [facility] Past Medical History Medical History Pain in wrist Tobacco use Hernia Urolithiasis Social History Social History Smoking packs per day: 0.5 Smoking cigarettes per day: 10.0 Years smoked: 20 Smoking pack-years: 10.00 Smoking status: Never smoker Second hand tobacco smoke exposure: No Alcohol intake: never Substance use: never Substance use type: marijuana Other substance usage details: daily use Last use: [id number] Do You Feel Safe in your Home?: Yes Lack of Transportation: No Lack of Food: Never True Current Housing: I Have Housing Concerned About Future Housing: No Difficulty Paying Gas/Electric Bills: No Difficulty Paying for Meds: No Currently Unemployed: No Education: High School Diploma/GED Difficulty w/ Childcare or Family Care: No Living arrangements: with family Occupation/Education: occupation Gender identity (if verbalized by the patient): Male Spiritual care concerns: No Anes - Eval Final PreProcedure Day of Procedure 11/23/24 10:48 Patient weight: normal Lungs: normal air movement Airway: Mallampati scale class II Neurological: alert and oriented Last oral intake: >/= 8 hours ASA classification: II Emergent: no Anesthetic plan: proceed Anesthesia type and monitoring: general LMA and standard monitoring Results Review: All pre-operative results and documents have been reviewed as part of the pre- operative evaluation. Ex smoker, quit 2023, 20 pack years. Pt has elevated cr w currently illness. Informed Consent: The patient's anesthetic plan and its attendant risks and benefits were discussed with the patient/family/POA. Questions were solicited and answers provided to the satisfaction of the patient/family/POA.
[2024-11-23] MEDS: ceFAZolin 2 GM/D5W 50 ML 2 GM/50 ML BAG IVPB (11:26)
[2024-11-23] MEDS: LIDOCAINE 2% GEL UROJET 10 ML PKG MUCOUS MEM (11:26)
--- NOTE | 2024-11-23 12:00 | W.PM.PROC2 ---
Procedure Note - Detailed Date of Procedure 11/23/24 Pre-op Diagnosis Left distal ureteral calculus Post-op Diagnosis Same Procedure Performed Cystoscopy, left retrograde pyelogram, left ureteroscopy with stone extraction, left ureteral stent placement 4.8 [place] contour Surgeon Juanjose Rios MD Anesthesia General Description of Procedure Patient was taken to the operative suite correctly identified. Once anesthesia was obtained he was placed in dorsal lithotomy position and prepped and draped usual sterile fashion. Nineteen [place] scope was inserted into the bladder direct vision. There were no tumors. Left ureteral orifice was cannulated with a guidewire. With the placement of that there was immediate release of fluid from the left ureter. I dilated the intramural ureter with an 810/dilator. It was somewhat tight. Upon doing so a stone fragment came out of the left ureter. A rigid ureteral scope was then inserted to make sure there was no residual stones. Nothing was noted. Pyelogram was performed to confirm placement of the stent. 4.8 [place] contour stent was then placed with the proximal end coiled in the renal pelvis and the distal in the bladder. Bladder was drained. 2% viscous lidocaine was inserted into the urethra. Patient is taken recovery stable condition. Discharged later today with a follow-up in a week's time for stent removal. This completes dictation. Please send a copy of op note to my office Estimated Blood Loss 0 Urine Output 225 Drains Yes Packing No Pathology Yes Complications No immediate complications Condition Stable Disposition PACU
[2024-11-23] MEDS: fentaNYL CITRATE INJ (*CRX) 100 MCG/2 ML VIAL 25 MCG IV PUSH ×3 (12:44→12:49)
[2024-11-24] MEDS: SODIUM CHLORIDE 0.9% IV 1,000 ML 125 ML IV CONT (03:30)
[2024-11-24 05:56] VITALS: BP 117/78; PULSE 71; RESP 16; TEMP 36.4; O2SAT 98
--- NOTE | 2024-11-24 12:30 | P.DS_ITS ---
DS: Admitting Diagnosis Discharge Date 11/24/24 Admitting Diagnosis Left ureteral calculus DS: Discharge Diagnosis Discharge Diagnosis (1) Ureteral stone: Code(s): N20.1 - Calculus of ureter Status: Acute DS: Summary Hospital Course Hospital Course: Patient was taken to the operating room for cysto left retrograde left ureteroscopy with stone extraction stent placement. Postoperatively he has done well. He is doing discharged home with pain meds, oxybutynin and Bactrim. He will follow-up in a week's time for stent removal. Time Spent with Patient Time attestation: Total time spent providing and/or coordinating discharge services: DS: Data Data Completed and Pending Completed studies during hospitalization: Pending at discharge 11/23/24 11:56 Surgical [PTH] Routine Discharge Plan Discharge Attending physician on discharge: Juanjose Rios Consulting providers: Nathanael Ventura Discharging Clinician: Juanjose Rios Anticipated Discharge Date/Time: 11/24/24 12:27 Patient Disposition: Home, Self-Care Activity: may shower and as tolerated Diet: regular Patient Instructions: Antibiotic Form Patient Language: [place] Stand Alone Forms: General Discharge Information Follow-up/Referrals: Juanjose Rios MD [Physician] - (follow up in 1 week for stent removal. Call for appt) Discharge Medications: New tramadol 50 mg tablet 50 mg PO Q6H PRN (Reason: pain) Qty: 20 0RF oxybutynin chloride 5 mg tablet 5 mg PO BID PRN (Reason: bladder spasms) Qty: 30 0RF Rx Instructions: Take as needed for bladder spasms sulfamethoxazole-trimethoprim [Bactrim DS] 800-160 mg tablet 1 tablet PO Q12H Qty: 6 0RF Date of admission: 11/22/24 13:31 Primary Care Provider: Génesis Beltran Admitting Provider: Nathanael Ventura Attending physician on admission: Nathanael Ventura Condition: Stable
== END 2024-11-24 13:20 | disposition home or self-care (01) ==
LOC: ANHED 13:30 → ANH3MEDSUR 11-24 12:28
PROVIDERS: Student in an Organized Health Care Education/Training Program; Admitting Provider Urology; Emergency Provider Registered Nurse; PCP Family Medicine; Visit Provider Urology
PROC: (CPT 52352; principal; 2024-11-23 11:30)
DX: N13.2 Hydronephrosis with renal and ureteral calculous obstruction (principal); N17.9 Acute kidney failure, unspecified; Z87.891 Personal history of nicotine dependence
CPT/HCPCS: 52352; 52332; 36415; 74177; 74420; 80053; 81001; 82365; 83690; 85025; 88300; 96361; 96374; 96375; 96376; 99285; A9270; C1769; C2617; G0378; J0690; J1100; J1171; J1885; J2250; J2405; J2704; J3010; J7030; J7120; Q9966; Q9967